=== PATIENT | female | born 1945 | race Caucasian/White ===

== ENCOUNTER 2023-01-22 10:30 | Observation (INO) ==
[2023-02-16] MEDS ORDERED: Ondansetron 4 mg VIAL 2 MG/ML 2 ml VIAL IV PRN (12:26)
[2023-02-16] MEDS ORDERED: oxyCODONE/Acetamin 5/325 mg TAB PO PRN (12:26)
[2023-02-16] MEDS ORDERED: Naloxone 0.4 mg VIAL 0.4 mg/ml 1 ml VIAL IV PRN (12:26)
[2023-02-16] MEDS ORDERED: fentaNYL 100 mcg/2 ml 50 MCG/ML VIAL IV PRN (12:26)
[2023-02-17] MEDS ORDERED: Lactated Ringers 1000 ml BAG 1,000 ML IV SCH (06:00)
[2023-02-17] MEDS ORDERED: Buffered Lidocaine 1% SYRIN 1 ml INTRADERM ONE (06:00)
[2023-02-17] MEDS ORDERED: ceFAZolin 2 GM PREMIX 2 GM/50 ML BAG ONE (11:56)
[2023-02-17] MEDS ORDERED: Midazolam 2 mg/2 ml VIAL 1 mg/ml 2 ml VIAL (2 mg) ONE ×2 (13:00→14:07)
[2023-02-17] MEDS ORDERED: ROPIVACAINE 5 MG/ML 30 ML BTL (0.5%) ONE ×2 (13:22→13:57)
[2023-02-17] MEDS ORDERED: fentaNYL 100 mcg/2 ml 50 MCG/ML VIAL ONE (14:11)
[2023-02-17] MEDS ORDERED: Lidocaine 2% PF 5 ML VIAL ONE (14:19)
[2023-02-17] MEDS ORDERED: Ondansetron 4 mg VIAL 2 MG/ML 2 ml VIAL ONE (14:51)
[2023-02-17] MEDS ORDERED: Dexamethasone IV 4 MG/ML VIAL 1 ml VIAL ONE (14:51)
[2023-02-17] MEDS ORDERED: Dexmedetomidine 200 mcg/2 ml 2 ml VIAL (200 mcg) ONE (16:34)
[2023-02-17] MEDS ORDERED: Propofol 10 MG/ML 20 ML BTL ONE (16:37)
[2023-02-17] MEDS ORDERED: Ondansetron ODT 4 mg TAB 4 MG TAB PO PRN (16:56)
[2023-02-17] MEDS ORDERED: Ondansetron 4 mg VIAL 2 MG/ML 2 ml VIAL IV PRN (16:56)
[2023-02-17] MEDS ORDERED: Lactulose 30 ml UDC PO PRN (16:56)
[2023-02-17] MEDS ORDERED: Morphine 2 MG/ML SYRINGE IV PRN (16:56)
[2023-02-17] MEDS ORDERED: Magnesium Hydroxide LIQ 30 ML UDC PO PRN (16:56)
[2023-02-17] MEDS ORDERED: Polyethyl Glycol/Propylene Gly OPHTH.SOLN BOTH EYES PRN (18:09)
[2023-02-17] MEDS: Lactated Ringers 1000 ml BAG 1,000 ML IV SCH (19:00)
[2023-02-17] MEDS ORDERED: Calcium Carb (TUMS) 500 mg CHEW TAB PO PRN (20:19)
[2023-02-17] MEDS: Magnesium Hydroxide LIQ 30 ML UDC PO SCH (21:21)
[2023-02-17] MEDS: ceFAZolin 1 GM ADVAN 1 GM in NS 0.9% 50 ML 50 ML IVPB SCH (21:54)
[2023-02-18] MEDS: ceFAZolin 1 GM ADVAN 1 GM in NS 0.9% 50 ML 50 ML IVPB SCH ×2 (05:09→13:41)
[2023-02-18] MEDS: Lactated Ringers 1000 ml BAG 1,000 ML IV SCH (05:10)
[2023-02-18 06:37] LABS: Hematocrit 35 % (35-47); Mean Platelet Volume 7.7 fL (7.4-10.4); Platelet Count 214 10^3/uL (150-450)
[2023-02-18 06:53] LABS: Calcium 8.9 mg/dL (8.6-10.3); Creatinine, Serum 0.75 mg/dL (0.51-0.95); Potassium 4.2 mmol/L (3.5-5.0)
[2023-02-18] MEDS: Magnesium Hydroxide LIQ 30 ML UDC PO SCH (07:35)
[2023-02-18] MEDS ORDERED: Vitamin THERAPEUTIC TAB PO SCH (09:00)
[2023-02-18 11:23] VITALS: BP 137/66
[2023-02-19] MEDS ORDERED: Cholecalciferol (VIT D3) 1,000 unit TAB PO SCH (09:00)
== END 2023-02-18 15:00 | disposition home or self-care (01) ==
LOC: INTOOBSV 02-17 11:43 → AA 02-17 11:43 → SSU 02-17 18:37
PROVIDERS: ADMIT Orthopaedic Surgery Adult Reconstructive Orthopaedic Surgery; ATTEND Orthopaedic Surgery Adult Reconstructive Orthopaedic Surgery